=== PATIENT | female | born 1945 | race African-American/Black ===

== ENCOUNTER 2021-12-19 13:23 | Observation (INO) ==
[2021-12-19] MEDS ORDERED: SODIUM CHLORIDE 0.9% 1,000 ML IV STA (13:57)
[2021-12-19 14:56] LABS: Basophils % 0.3 % (0.0-0.8); Eosinophils # 0.1 10*3/uL (0.0-0.87); Eosinophils % 1.5 % (0.00-10.9); Hematocrit 33.4 VOL% (35.7-47.0); Hemoglobin 11.7 GM/DL (12.0-16.0); Immature Granulocytes % 0.4 %; Immature Granulocytes Absolute 0.03 #; Lymphocytes % 29.8 % (21.3-54.2); Mean Corpuscular Volume 85.2 FL (87-102); Monocytes % 5.6 % (1.7-12.7); Neutrophils % 62.4 % (38.7-73.9); Platelet Count 229 T/CUMM (130-400); Red Blood Count 3.92 MC/CUMM (3.8-5.5); Red Cell Distribution Width 11.9 % (9.3-17.3); White Blood Count 6.8 T/CUMM (4-12)
[2021-12-19 15:12] LABS: Albumin 3.4 G/DL (3.4-5.0); Bilirubin,Total 0.5 MG/DL (0.20-1.00); Osmolality,Calculated 249.6 MOS/KG (273-304); Potassium 2.9 MMOL/L (3.5-5.1); Total Protein 7.6 G/DL (6.4-8.2)
[2021-12-19] MEDS ORDERED: POTASSIUM CHLORIDE 20 MEQ TABLET PO STA (15:57)
[2021-12-19 16:07] LABS: Bacteria,Urine Occasional /HPF (Few); RBC,Urine 2 /HPF (0-4)
[2021-12-19 16:14] LABS: Bilirubin,Urine Negative (Negative); Blood, Urine Negative (Negative); Glucose,Urine (UA) Negative (Negative); Ketones,Urine Negative (Negative); Nitrite,Urine Negative (Negative); Protein,Urine Negative (Negative); Urine Appearance Clear (Clear); Urine Color Yellow (Yellow); Urine Specific Gravity 1.015 (1.001-1.035); Urine Urobilinogen 0.2 eU/dL (<2.0)
[2021-12-19] MEDS ORDERED: ONDANSETRON 4 MG/2 ML VIAL IV PRN (16:57)
[2021-12-19] MEDS ORDERED: ACETAMINOPHEN 325 MG TABLET PO PRN (16:57)
[2021-12-19] MEDS ORDERED: GLUCAGON 1 MG VIAL IM PRN (16:57)
[2021-12-19] MEDS ORDERED: DEXTROSE 10% 250 ML BAG IV PRN (17:07)
[2021-12-19 17:41] LABS: Thyroid Stimulating Hormone 0.934 uIU/ml (0.358-3.74)
[2021-12-19] MEDS ORDERED: cefTRIAXone 1,000 MG in SODIUM CHLORIDE 0.9% 100 ML IV SCH (18:00)
[2021-12-19] MEDS: SODIUM CHLOR 0.9% KCL 40 MEQ 40 MEQ/1,000 ML BAG IV SCH (18:13)
[2021-12-19] MEDS ORDERED: ENOXAPARIN 40 MG/0.4 ML SYRINGE SUBCUT SCH (21:00)
[2021-12-19] MEDS ORDERED: ATORVASTATIN 20 MG TABLET PO SCH (21:00)
[2021-12-20] MEDS: SODIUM CHLOR 0.9% KCL 40 MEQ 40 MEQ/1,000 ML BAG IV SCH (03:49)
[2021-12-20 04:26] LABS: Basophils % 0.6 % (0.0-0.8); Eosinophils # 0.3 10*3/uL (0.0-0.87); Eosinophils % 4.7 % (0.00-10.9); Immature Granulocytes % 0.6 %; Immature Granulocytes Absolute 0.04 #; Lymphocytes % 43.8 % (21.3-54.2); Mean Corpuscular HGB Conc 34.3 GM/DL (32-36); Mean Corpuscular Volume 85.8 FL (87-102); Mean Platelet Volume 9.4 FL (9.6-12.0); Monocytes % 5.5 % (1.7-12.7); Neutrophils % 44.8 % (38.7-73.9); Platelet Count 244 T/CUMM (130-400); Red Blood Count 4.08 MC/CUMM (3.8-5.5); Red Cell Distribution Width 12.1 % (9.3-17.3); White Blood Count 6.8 T/CUMM (4-12)
[2021-12-20] MEDS ORDERED: hydrALAZINE 20 MG/1 ML VIAL IV PRN (04:37)
[2021-12-20 04:43] LABS: Calcium 9.1 MG/DL (8.5-10.1); Osmolality,Calculated 262.4 MOS/KG (273-304); Potassium 4.6 MMOL/L (3.5-5.1)
[2021-12-20] MEDS ORDERED: SODIUM CHLORIDE 0.9% 1,000 ML IV SCH (08:00)
[2021-12-20] MEDS ORDERED: amLODIPine 10 MG TABLET PO SCH (09:00)
[2021-12-20] MEDS ORDERED: PANTOPRAZOLE 40 MG TABLET PO SCH (09:00)
[2021-12-20] MEDS ORDERED: ASPIRIN EC 81 MG TABLET PO SCH (09:00)
[2021-12-20] MEDS ORDERED: amLODIPine 2.5 MG TABLET PO SCH (09:00)
[2021-12-20] MEDS ORDERED: QUINAPRIL 20 MG TABLET PO SCH (09:00)
[2021-12-20] MEDS ORDERED: ENALAPRIL 20 MG TABLET PO SCH (09:30)
[2021-12-20] MEDS ORDERED: MAGNESIUM SULF RIDER 2 GM/50 ML PREMIX IV ONE (11:17)
[2021-12-20 12:32] VITALS: BP 124/62
== END 2021-12-20 15:15 | disposition home or self-care (01) ==
LOC: EDBD → EDUNIT# → N.ED 13:23 → N.EDINP 16:39 → EDSTATUS 17:25 → N.5E 12-20 07:21
PROVIDERS: ADMIT Hospitalist; ATTEND Hospitalist